=== PATIENT | male | born 1950 | race African-American/Black ===

== ENCOUNTER 2018-11-21 12:43 | Outpatient (CLI) | payer MEDICARE, OTHER ==
--- NOTE | 2018-11-21 13:07 | RAD ---
EXAM: Two views chest PROVIDED CLINICAL HISTORY: Dyspnea COMPARISON: 05/16/2018 FINDINGS: Cardiac silhouette remains at the upper limits of normal. The pulmonary vasculature is within normal limits.The lungs are clear. Degenerative changes are again seen in the spine.Vascular calcifications are again seen in the thoracic aorta. IMPRESSION: No acute cardiopulmonary process.
== END 2018-11-21 12:44 | disposition home or self-care (01) ==
LOC: RAD 12:43
PROVIDERS: ATTEND Internal Medicine Critical Care Medicine
DX: R06.00 Dyspnea, unspecified (principal)
CPT/HCPCS: 71046

== ENCOUNTER 2020-06-22 11:38 | Outpatient (CLI) | payer MEDICARE ==
--- NOTE | 2020-06-22 12:01 | RAD ---
EXAM: Toes left foot: 3 views INDICATIONS: Pain COMPARISON: None. 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 IP joints appear unremarkable. Flexion deformity at the PI P joints of second through fifth digit. No fracture identified. IMPRESSION: No acute finding
== END 2020-06-22 11:39 | disposition home or self-care (01) ==
LOC: BICRAD 11:38
PROVIDERS: ATTEND Podiatrist
DX: M10.00 Idiopathic gout, unspecified site (principal); M19.90 Unspecified osteoarthritis, unspecified site
CPT/HCPCS: 36415; 84550

== ENCOUNTER 2021-01-08 11:21 | Outpatient (CLI) | payer MEDICARE | END 2021-01-08 11:22 | disposition home or self-care (01) | LOC: BICRAD 11:21 | PROVIDERS: ATTEND Internal Medicine Gastroenterology | DX: R93.89 Abnormal findings on diagnostic imaging of other specified body structures (principal) | CPT/HCPCS: 71046 ==

== ENCOUNTER 2022-03-07 09:00 | Outpatient (CLI) | payer MEDICARE ==
[2022-03-07] MEDS ORDERED: Iopamidol 300 61% 100 ML VIAL FS ONE (15:51)
== END 2022-03-07 09:01 | disposition home or self-care (01) ==
LOC: BICCT 09:00
PROVIDERS: ATTEND Physician Assistant Medical
DX: D3A.8 Other benign neuroendocrine tumors (principal); B96.81 Helicobacter pylori [H. pylori] as the cause of diseases classified elsewhere
CPT/HCPCS: 74170; 82565; Q9967